=== PATIENT | female | born 1950 | race Caucasian/White ===

== ENCOUNTER 2020-04-04 16:09 | Emergency (ER) | payer MEDICARE, SELFPAY ==
--- NOTE | ~2020-04-04 | XR_ITS ---
EXAMINATION: XR shoulder RT min 2V EXAM DATE: 04/04/2020 16:38 INDICATION: Initial encounter following injury, with pain of the right shoulder. [place] pop. TECHNIQUE: The following right shoulder projections obtained: frontal projection with internal rotati on, frontal projection with external rotation, Grashey, and scapular Y view (4+ views). There is no prior study for comparison. FINDINGS: No evidence of right shoulder rotator cuff calcific tendinosis. There is mild glenohumer al and acromioclavicular joint primary osteoarthritis. There are no acute fractures or dislocations i dentified. There is no subcutaneous gas. The soft tissue is unremarkable. There are no radiopaque foreign bodies. Scattered punctate lung granulomata. IMPRESSION: 1. Right shoulder exam without acute osseous findings. 2. Mild osteoarthritis. Reviewed, dictated and finalized at location A.
[2020-04-04 16:18] VITALS: BP 121/62; PULSE 80; RESP 16; TEMP 36.6; O2SAT 98
--- NOTE | 2020-04-04 16:25 | ED.UPPEXIN ---
HPI - Extremity Injury (Upper) General Chief Complaint: Extremity Injury, Upper Stated Complaint: right shoulder pain Time Seen by Provider: 04/04/20 16:25 Source: patient and RN notes reviewed Mode of arrival: ambulatory Limitations: no limitations History of Present Illness HPI narrative: This is a 70 years old female presents to the office for an evaluation of right shoulder pain. She heard a popping noise when she lifted a case of pepi to load into her car. Complains of immediate pain since then. Denies previous injury or trauma in the past. Admits to history of rheumatoid arthritis. She took her Vicodin for her chronic pain prior to arrival. Related Data Home Medications Medication Instructions Recorded Confirmed albuterol sulfate [Ventolin HFA] 2 puff INHALATION Q4H PRN 04/04/20 04/04/20 alendronate 70 mg PO WEEKLY 04/04/20 04/04/20 citalopram 20 mg PO DAILY 04/04/20 04/04/20 fluticasone propion-salmeterol 1 inh INHALATION Q12H 04/04/20 04/04/20 [Advair Diskus] hydrocodone-acetaminophen 1 tablet PO Q6H PRN 04/04/20 04/04/20 omeprazole 40 mg PO DAILY 04/04/20 04/04/20 trazodone 50 mg PO HS 04/04/20 04/04/20 valsartan-hydrochlorothiazide 1 tablet PO DAILY 04/04/20 04/04/20 Allergies Allergy/AdvReac Type Severity Reaction Status Date / Time No Known Allergies Allergy Unknown Verified 04/04/20 16:28 Review of Systems Review of Systems: Narrative: CONSTITUTIONAL: Denies fever or feeling ill CARDIOVASCULAR: Denies chest pain RESPIRATORY: Denies dyspnea GASTROINTESTINAL: Denies nausea, vomiting MUSCULOSKELETAL: Reports right shoulder pain with limited mobility NEUROLOGIC: Denies numbness or tingling in her fingers. [facility] Past Medical History Medical History Acid reflux Anxiety and depression Arthritis Asthma Bilateral cataracts Chronic pain HLD (hyperlipidemia) HTN (hypertension) Osteoporosis Smoker Family History Family History Father Family history of diabetes mellitus in first degree relative Other Cerebrovascular accident Hypertension Social History Social History Smoking status: Smoker, status unknown Alcohol intake: never Comments At time of signature, I agree with nursing past medical, surgical, social and family history. There is no relevant family history pertinent to the presenting complaint. Exam Narrative: Exam Narrative: GENERAL: This is a well-nourished, well-developed patient, in no apparent distress. CARDIOVASCULAR: Regular rate and rhythm without murmurs, gallops, or rubs. RESPIRATORY: Clear to auscultation. Breath sounds equal bilaterally. No wheezes, rales, or rhonchi. NEURO: awake, alert, and oriented to person, place and time. There were no obvious focal neurologic abnormalities. Steady gait EXTREMITIES: The R shoulder is without obvious asymmetry or deformity when comparing to L shoulder. No surface trauma, ecchymosis. No bony deformity of the humerus head. No erythema, warmth, swelling to palpate. Nontender to palpate over the clavicle, A to C joint. ROM is limited secondary to pain. Normal sensation over the deltoid and ability to flex the arm at the elbow indicated intact axillary nerve function. Distal motor is a normal vascular status is intact. [place] Coma Scale Eye Opening: Spontaneous 4 [place] Coma Scale Motor: Obeys Commands 6 [place] Coma Scale Verbal: Oriented 5 Course Vital Signs Vital signs: Vital Signs Temperature 97.9 F 04/04/20 16:18 Pulse Rate 80 04/04/20 16:18 Respiratory Rate 16 04/04/20 16:18 Blood Pressure 121/62 04/04/20 16:18 Pulse Oximetry 98 04/04/20 16:18 Temperature 97.9 F 04/04/20 16:18 Pulse Rate 80 04/04/20 16:18 Respiratory Rate 16 04/04/20 16:18 Blood Pressure 121/62 04/04/20 16:18 Pulse Oximetry 98 04/04/20 16:18 MDM - Extremity Injury (Upper) MDM Narrative Medic
== END 2020-04-04 17:00 | disposition home or self-care (01) ==
PROVIDERS: Emergency Provider Nurse Practitioner
DX: M19.011 Primary osteoarthritis, right shoulder (principal); G89.29 Other chronic pain; I10 Essential (primary) hypertension; E78.5 Hyperlipidemia, unspecified
CPT/HCPCS: 73030; 99213; A4565; G0463